=== PATIENT | male | born 1955 | race Native Hawaiian/Other Pacific Islander ===

== ENCOUNTER 2023-06-01 15:35 | Emergency (ER) | payer OTHER ==
[~2023-06-01] VITALS: Ht 170.2 cm; Wt 67.1 kg
[2023-06-01 15:50] VITALS: TEMP 98.2
[2023-06-01 17:12] LABS: PLATELET COUNT 395 K/uL (142-355)
[2023-06-01 17:15] LABS: POTASSIUM 4.4 mmol/L (3.6-5.2)
[2023-06-01 17:18] LABS: PARTIAL THROMBOPLASTIN TIME 35.1 SECONDS (23.9-36.7)
[2023-06-01] MEDS ORDERED: IPRATROPIUM-ALBUTEROL 1 SOL SOL INH ONE ×2 (17:29→17:36)
[2023-06-01] MEDS ORDERED: METHYLPREDNISOLONE SOD SUCC 125 MG ML IV ONE (17:29)
[2023-06-01] MEDS ORDERED: DIPHENHYDRAMINE HCL 50 MG INJ INJ ONE (17:29)
[2023-06-01] MEDS ORDERED: BUDESONIDE INH ONE ×2 (17:30→17:36)
[2023-06-01] MEDS ORDERED: DIPHENHYDRAMINE HCL 50 MG INJ ONE (17:34)
[2023-06-01] MEDS ORDERED: METHYLPREDNISOLONE SOD SUCC 125 MG IV ONE (17:34)
[2023-06-01] MEDS ORDERED: FAMOTIDINE 20 MG/2 ML ONE (17:36)
[2023-06-01] MEDS ORDERED: FAMOTIDINE 20 MG/2 ML INJ ONE (17:48)
[2023-06-01] MEDS ORDERED: SODIUM CHLORIDE 500 ML IV ONE (18:07)
[2023-06-01] MEDS ORDERED: SODIUM CHLORIDE 0.9% 500ML BAG IV ONE (18:08)
[2023-06-01 21:33] VITALS: BP 134/61
== END 2023-06-01 21:33 | disposition home or self-care (01) ==
LOC: ED 15:35
PROVIDERS: Family Medicine
DX: I70.8 Atherosclerosis of other arteries (principal); I73.9 Peripheral vascular disease, unspecified; Z72.0 Tobacco use; T78.49XA Other allergy, initial encounter; M79.605 Pain in left leg; M79.604 Pain in right leg; Y92.89 Other specified places as the place of occurrence of the external cause; R09.89 Other specified symptoms and signs involving the circulatory and respiratory systems
CPT/HCPCS: 36415; 80053; 85027; 85610; 85730; 93005; 94664; 96361; 96374; 96375; 99284; J1200; J2930; Q9963